=== PATIENT | female | born 1995 | race Caucasian/White ===

== ENCOUNTER → 2018-09-08 12:53 | Outpatient (CLI) | payer OTHER, MEDICAID, SELFPAY ==
[2018-09-08 13:30] LABS: Add Manual Diff / Slide Review NO; Basophils Absolute Auto 0 /uL (0-100); Basophils Percent Auto 0.4 % (0-2); Eosinophils Absolute Auto 200 /uL (0-450); Eosinophils Percent Auto 2.2 % (2-4); Hematocrit 36.3 % (36-46); Hemoglobin 12.8 g/dL (12.0-16.0); Lymphocytes Absolute Auto 1500 /uL (1100-4500); Lymphocytes Percent Auto 17.7 % (25-40); Mean Corpuscular HGB Conc 35.2 % (30-36); Mean Corpuscular Hemoglobin 31.2 PG (26-34); Mean Corpuscular Volume 88.7 fL (80-100); Monocytes Absolute Auto 800 /uL (0-900); Neutrophils Absolute Auto 6000 /uL (1500-7000); Neutrophils Percent Auto 70.7 % (50-75); Platelet Count 255 X10^3/uL (150-400); Red Blood Cell Count 4.09 X10^6/uL (4.0-5.2); Red Cell Distribution Width 12.3 % (11.6-14.8); White Blood Cell Count 8.5 X10^3/uL (4.5-11.0)
[2018-09-08 13:39] LABS: Appearance Urine UA CLEAR; Bilirubin Urine UA NEGATIVE (NEGATIVE); Color Urine UA YELLOW; Glucose Urine UA NEGATIVE (Negative); Ketones Urine UA NEGATIVE (NEGATIVE); Leukocyte Esterase Urine UA NEGATIVE (NEGATIVE); Nitrite Urine UA NEGATIVE (Negative); Occult Blood Urine UA TRACE-INTACT (Negative); Protein Urine UA NEGATIVE (Negative); Specific Gravity Urine UA >=1.030 (1.000-1.035); Urobilinogen Urine UA 0.2 E.U./dL (0.2)
[2018-09-08 15:28] LABS: Hepatitis B Surface Antigen NEGATIVE s/c (NEGATIVE); Rubella Antibody IgG 26.9 IU/mL (>15)
[2018-09-08 15:45] LABS: HIV 1 and 2 Antibody NEGATIVE (NEGATIVE); Hep C Virus Ab w/Reflex Quant NEGATIVE s/c (NEGATIVE)
[2018-09-11 13:09] LABS: RPR Screen Nonreactive (Nonreactive)
== END ==
PROVIDERS: PCP Nurse Practitioner Family; Visit Provider Specialist
DX: Z34.81 Encounter for supervision of other normal pregnancy, first trimester (principal)
CPT/HCPCS: 36415; 80055; 81003; 86703; 86787; 86803; 86850; 86900; 86901; 87086

== ENCOUNTER → 2018-12-08 09:44 | Outpatient (CLI) | payer OTHER, MEDICAID, SELFPAY ==
--- NOTE | 2018-12-08 09:45 | DI.US.S_ITS ---
PROCEDURE: US OB >= 14 WEEKS FETUS INDICATIONS: ANATOMY OUTSIDE/PRIOR DATING DATA: Last menstrual period (LMP): 07/28/18. LMP-based estimated date of delivery (ELIEL): 05/04/19. First dating scan (date and location): This study, 12/08/18. Estimated date of delivery (ELIEL) from first dating scan: 04/10/19. TECHNIQUE: Real-time scanning was performed of the fetus, with image documentation and biometric measurements. Endovaginal scanning: Not needed for this study COMPARISON: None. FINDINGS: General: A single living intrauterine gestation is present. Presentation: Vertex. Placenta: Placental position is right fundal, without previa. Amniotic fluid index: 13.1 cm, normal range is 5-24 cm. heart rate: 133 beats per minute. Maternal cervical canal: 3.6 cm biometrics: Biparietal diameter: 5.4 cm, 20 weeks 3 days Head circumference: 20.2 cm, and 22 weeks 3 days Abdominal circumference: 17.1 cm, 22 weeks 1 day Femur length: 3.9 cm, 20 weeks 4 days Estimated gestational age from initial scan: not applicable. Composite gestational age from present scan: 22 weeks 3 days Estimated weight: 492 g Measurement variability for biometric dating: +/- 7 days from 14 weeks to 15 weeks 6 days gestation, +/- 10 days from 16 weeks to 21 weeks 6 days gestation, +/- 2 weeks from 22 weeks to 27 weeks 6 days gestation, +/- 3 weeks for 28 weeks gestation or later. weight reference: 4500 g or EFW >90/95% is considered macrosomia or large for gestational age. EFW <10% is small for gestational age. EFW 5% or less is considered intra-uterine growth restriction. Anatomic survey: Neuro: Ventricles are non-dilated at less than 10 mm. Cisterna magna is normal at 3-11 mm. Cerebellum is normal in size and morphology. Nuchal skin fold: Normal at less than 6 mm between 14-21 weeks gestational age. Face: Nose and lips, facial profile are normal. Spine: No evidence for spina bifida. Heart: 4-chambered heart is present, with normal ventricular outflow tracts. Diaphragm: Diaphragm is intact. Stomach: Left-sided stomach is present. Kidneys: No hydronephrosis. Normal is less than 5 mm in 2nd trimester, less than 7 mm in 3rd trimester. Cord: 3-vessel cord has orthotopic insertion. Bladder: Normal in size. Extremities: All 4 extremities identified. IMPRESSION: Single living intrauterine gestation with normal anatomy and with delivery date projected to be centered on 04/10/19 from current biometry. The current estimated gestational age is 22 weeks 3 days, no earlier OB ultrasound is available for review. Dictated by: Vikas Harris M.D. on 12/08/2018 at 16:50 Approved by: Vikas Harris M.D. on 12/08/2018 at 16:57
== END ==
PROVIDERS: PCP Nurse Practitioner Family; Visit Provider Specialist
DX: Z34.82 Encounter for supervision of other normal pregnancy, second trimester (principal); Z3A.22 22 weeks gestation of pregnancy
CPT/HCPCS: 76811

== ENCOUNTER 2018-12-14 10:56 | Emergency (ER) | payer OTHER, MEDICAID, SELFPAY ==
[2018-12-14 11:20] VITALS: BP 107/60; PULSE 59; RESP 15; TEMP 36.8; O2SAT 100; BMI 24.7
--- NOTE | 2018-12-14 11:31 | DI.US.S_ITS ---
PROCEDURE: US ABDOMEN LIMITED INDICATIONS: RIGHT GROIN LUMP, PAIN; 6 MONTHS TECHNIQUE: Real-time focused scanning was performed of the inguinal region, with image documentation. COMPARISON: [facility], , OB COMPLETE 14WKS OR MORE, 05/28/2016, 12:12. [facility], , US OB >= 14 WEEKS FETUS, 12/08/2018, 10:09. [facility], , US OB <= 14 WEEKS FETUS, 10/17/2018, 14:20. FINDINGS: Scanning over the inguinal canals in the areas of concern was performed, both before and during Valsalva maneuver. A bowel containing or fat containing mobile inguinal hernia with fat identified. Rather, on color Doppler imaging prominent venous collateral flow is identified within the inguinal canals. The study does not extend cephalad into the area around the gestation, and it is possible that this is a manifestation of pelvic venous congestion of . Compression of the retroperitoneal vessels by the gestation can produce restriction to venous flow and secondary collateral development to a greater degree in some patients than others. No ascites is seen. No tenderness was present. IMPRESSION: A hernia is not seen associated with this gestation. The palpable soft tissue prominence in the area current clinical concern at the right groin appears to represent venous collateral flow likely secondary to pelvic venous congestion of . The study is limited in its [id number] and depending on the clinical status followup by noncontrast pelvic MR scanning optimized for venous visualization could be performed. Dictated by: Vikas Harris M.D. on 12/14/2018 at 13:09 Approved by: Vikas Harris M.D. on 12/14/2018 at 13:16
--- NOTE | 2018-12-14 11:50 | ED.ABDPAIN ---
HPI - Abdominal Pain General Chief Complaint: Abdominal Pain Stated Complaint: Hernia,swollen,turning purple,6 mth preg Time Seen by Provider: 12/14/18 11:25 Source: patient Mode of arrival: ambulatory Limitations: no limitations History of Present Illness HPI narrative: Patient is a 23-year-old female currently 6 months presenting with right labia at color abnormality. Seen evaluated at [facility] where she was diagnosed the. She has had increased pain in the noticed discoloration of her labia which they took a picture of and came to the ER. She denies any bulging. She has no abdominal pain. She has no vaginal bleeding. No nausea or vomiting. Related Data Previous Rx's Medication Instructions Recorded Vitamins (PRENAVITE) 1 tab PO QDAY #90 tab 03/05/16 docusate sodium 250 mg PO QDAY #30 cap 10/18/16 Allergies Allergy/AdvReac Type Severity Reaction Status Date / Time No Known Allergies Allergy Unknown Verified 12/14/18 11:32 [NO KNOWN ALLERGIES] Review of Systems Review of Systems ROS Unobtainable: All systems reviewed & are unremarkable except as noted in HPI and below Constitutional Denies chills, Denies fever(s), Denies lethargy and Denies weakness Cardiovascular Denies dyspnea and Denies dyspnea on exertion Respiratory Denies cough, Denies dyspnea, Denies dyspnea on exertion and Denies wheezing Gastrointestinal Gastrointestinal: Reports as per HPI Genitourinary Reports as per HPI Integumentary/Breasts Denies pruritus, Denies erythema, Denies rash and Denies wounds Neurologic Denies weakness Allergic/Immunologic Denies wheezing [facility] Medical History Hernia of anterior abdominal wall (Acute) Family History (Updated 05/06/16 @ 00:00 by Conversion Provider) Grandmother Diabetes mellitus Hypertension Stroke Social History Smoking Status: Never smoker Family History Grandmother Diabetes mellitus Hypertension Stroke Social History Smoking Status: Never smoker Exam Initial Vital Signs Initial Vital Signs: Vital Signs Temperature 98.3 F 12/14/18 11:20 Pulse Rate 59 L 12/14/18 11:20 Respiratory Rate 15 08/18/19 11:20 Blood Pressure 107/60 08/18/19 11:20 Pulse Oximetry 100 12/14/18 11:20 GENERAL: Well-appearing, well-nourished and in no acute distress. HEENT: Head atraumatic,EOMI, pupils reactive, face symmetric, mpanum PHARYNX: No erythema, no tonsillar exudate, no cervical lymphadenopathy CARDIOVASCULAR: Regular rate and rhythm without murmurs, rubs or gallops. RESPIRATORY: Breath sounds equal bilaterally, no wheezes rales or rhonchi. ABDOMEN: Soft, gravid abdomen no tenderness. Right inguinal area no bulging now and tender the : No significant swelling of the sleepy minor discoloration slightly cyanotic varice and noted EXTREMITIES: Normal range of motion, no clubbing or edema. Neurovascularly intact NEUROLOGICAL: Alert and oriented x4.Normal gait and speech. Cranial nerves II through XII grossly intact. SKIN: Warm, dry, no laceration, no petechiae, no rashes or lesions. Course Orders Ordered: ED Orders 12/14/18 11:31 US abdomen limited Stat Vital Signs - 8 hr 12/14/18 11:20 12/14/18 13:29 Temperature 98.3 F Pulse Rate 59 L 64 Respiratory Rate 15 15 Blood Pressure 107/60 Blood Pressure [Right Arm] 103/62 Pulse Oximetry 100 100 MDM - Abdominal Pain Imaging Data US - abdomen: Radiologist's impression: PROCEDURE: US ABDOMEN LIMITED INDICATIONS: RIGHT GROIN LUMP, PAIN; 6 MONTHS TECHNIQUE: Real-time focused scanning was performed of the inguinal region, with image documentation. COMPARISON: [facility], OB COMPLETE 14WKS OR MORE, 05/28/2016, 12:12. [facility], US OB >= 14 WEEKS FETUS, 12/08/2018, 10:09. [facility], US OB <= 14 WEEKS FETUS, 10/17/2018, 14:20. FINDINGS: Scanning over the inguinal canals in the areas of concern was performed, both before and during Valsalva maneuver. A bowel containing or fat containing mobile inguinal hernia with fat identified. Rather, on color Doppler imaging prominent venous collateral flow is identified within the inguinal canals. The study does not extend cephalad into the area around the gestation, and it is possible that this is a manifestation of pelvic venous congestion of . Compression of the retroperitoneal vessels by the gestation can produce restriction to venous flow and secondary collateral development to a greater degree in some patients than others. No ascites is seen. No tenderness was present. IMPRESSION: A hernia is not seen associated with this gestation. The palpable soft tissue prominence in the area current clinical concern at the right groin appears to represent venous collateral flow likely secondary to pelvic venous congestion of . The study is limited in its [id number] and depending on the clinical status followup by noncontrast pelvic MR scanning optimized for venous visualization could be performed. Dictated by: Vikas Harris M.D. on 12/14/2018 at 13:09 MDM Narrative Medical decision making narrative: Record from [facility] are seen and reviewed. She did have an ultrasound on 11/14/2018 which did show a fat containing hernia in the right inguinal region. However today her labia does show a varice vein which is likely related to . I do not feel a bulge in her right lower quadrant she is not significantly tender in that area. At this time I do not feel like she has acute or incarcerated hernia. Discharge Plan Departure Patient Disposition: Home Clinical Impression: Genital varices during in second trimester Discharge Date/Time: 12/14/18 13:32 Interventions: ED Discharge Assessment Last Done: 12/14/18 13:31 Instructions: DI for Varicocele Activity Restrictions/Additional Instructions: *You have been diagnosed with varicocele of *What to do: Ultrasound and exam today did not reveal hernia. *Continue to take medications as directed *Follow up with your primary care provider in 2-3 days *Return to ER if you should have bleeding or any new, worsening or concerning symptoms Prescriptions: No Action Vitamins (PRENAVITE) 1 tab PO QDAY Qty: 90 RF: 3 docusate sodium 250 MG capsule 250 mg PO QDAY Qty: 30 RF: 0 Referrals: Nadya Sharma ARNP [Primary Care Provider] -
[2018-12-14 13:29] VITALS: BP 103/62; PULSE 64; RESP 15; O2SAT 100
== END 2018-12-14 13:32 | disposition home or self-care (01) ==
PROVIDERS: Emergency Provider Emergency Medicine; Family Provider Specialist; PCP Nurse Practitioner Family
DX: O22.12 Genital varices in pregnancy, second trimester (principal)
CPT/HCPCS: 76705; 99282; 99283

== ENCOUNTER → 2019-03-25 10:22 | Outpatient (CLI) | payer OTHER, MEDICAID, SELFPAY ==
[2019-03-26 14:21] LABS: Strep Grp B PCR NEG for Grp B Strep
== END ==
PROVIDERS: Family Provider Specialist; PCP Nurse Practitioner Family; Visit Provider Specialist
DX: Z34.83 Encounter for supervision of other normal pregnancy, third trimester (principal); Z36.85 Encounter for antenatal screening for Streptococcus B; Z3A.36 36 weeks gestation of pregnancy
CPT/HCPCS: 87653

== ENCOUNTER 2019-04-08 23:41 | Inpatient (IN) | payer OTHER, MEDICAID, SELFPAY ==
[2019-04-09 04:08] VITALS: BP 120/68
[2019-04-09 05:37] LABS: Hemoglobin 13.2 g/dL (12.0-16.0); Lymphocytes Percent Auto 12.3 % (25-40); Mean Corpuscular HGB Conc 34.8 % (30-36); Mean Corpuscular Hemoglobin 32.1 PG (26-34); Mean Corpuscular Volume 92.2 fL (80-100); Monocytes Percent Auto 6.7 % (3-14); Neutrophils Percent Auto 79.6 % (50-75); Red Blood Cell Count 4.12 X10^6/uL (4.0-5.2); Red Cell Distribution Width 12.5 % (11.6-14.8); White Blood Cell Count 16.3 X10^3/uL (4.5-11.0)
[2019-04-09 05:38] LABS: Add Manual Diff / Slide Review SLIDE REVIEW; Basophils Absolute Auto 0 /uL (0-100); Basophils Percent Auto 0.4 % (0-2); Eosinophils Absolute Auto 0 /uL (0-450); Lymphocytes Absolute Auto 2 /uL (1100-4500); Monocytes Absolute Auto 1 /uL (0-900); Neutrophils Absolute Auto 13 /uL (1500-7000)
[2019-04-09 06:35] LABS: Platelet Count 174 X10^3/uL (150-400); Platelet Estimate Adequate on smear
[2019-04-09 06:36] LABS: Polychromasia 1+
--- NOTE | 2019-04-09 08:00 | PM.OBHP.1 ---
OB HPI Date/Time Date of admission: 04/09/19 Date Patient Seen: 04/09/19 Time Patient Seen: 08:01 History of Present Condition Chief complaint: : 2 Para: 1 Estimated Date of Delivery: 04/10/19 Estimated Gestational Age (weeks): 39 Narrative: Nanda Somers is a 24 year old female admitted in active labor History of Present care: good care, initiated at week # (11), number of visits (9) and pounds weight gain (22) Dating criteria: based on 2nd trimester US only Ultrasounds: normal mid trimester US Obstetrical complications: none Medical complications: none Preadmission Labs Blood type: B (-) negative -: Antibody screen: negative, GBS status: negative, HBsAG: negative, HIV: negative and RPR/VDLR: negative -: Chlamydia screen: not detected and Gonorrhea screen: not detected -: Rubella: immune and Varicella: immune HCAB: negative PAP: Normal Quad screen: Abnormal (Initially increased risk of open neural tube defect but normal after recalculated an EDC) 1 hr GTT: 132 Prior (ies) History: 10/16/2016 spontaneous vaginal delivery female 40 week 7 lb 11oz Evaluation Evaluation Baseline heart rate: 135 Variability: Moderate (11-25) monitor accelerations: Present monitor decelerations: Absent Contraction Frequency (minutes): 3 Uterine Contraction Intensity: Strong/Firm Category of Tracing: I Cervical dilation (cm): 7 Cervical effacement (%): 90 station: -1 Laboratory results: Laboratory Tests 04/09/19 04/09/19 04:30 04:30 WBC 16.3 H RBC 4.12 Hgb 13.2 Hct 38.0 MCV 92.2 MCH 32.1 MCHC 34.8 RDW 12.5 Plt Count 174 Neut % (Auto) 79.6 H Lymph % (Auto) 12.3 L Churchill % (Auto) 6.7 Eos % (Auto) 1.0 L Baso % (Auto) 0.4 Neut # (Auto) 13 L Lymph # (Auto) 2 L Churchill # (Auto) 1 Eos # (Auto) 0 Baso # (Auto) 0 Platelet Estimate Adequate on smear RBC Morphology See below Polychromasia 1+ H Blood Type B Negative PFSH Social History Smoking Status: Never smoker Meds Home Medications and Allergies Home Medications Medication Instructions Recorded Confirmed Type Vitamins (PRENAVITE) 1 tab PO QDAY #90 tab 03/05/16 04/09/19 Rx docusate sodium 250 mg PO QDAY #30 cap 10/18/16 04/09/19 Rx Double Electric Breast Pump and #1 each 12/31/18 04/09/19 Rx supplies Allergies Allergy/AdvReac Type Severity Reaction Status Date / Time No Known Allergies Allergy Unknown Verified 12/14/18 11:32 [NO KNOWN ALLERGIES] Review of Systems Review of Systems Narrative: Patient with onset of contractions but no leakage of fluid. Good movement. No signs or symptoms of preeclampsia ROS Unobtainable: All systems reviewed & are unremarkable except as noted in HPI and below Exam Vital Signs (past 8 hours): - 04/09/19 04:08 Blood Pressure 120/68 Narrative Exam Narrative: HEENT exam within normal limits. Lungs are clear to auscultation percussion. Heart is regular rate and rhythm no S3-S4 or murmurs. Fetus is vertex. Extremities without edema and nontender Objective Labs Result Diagrams: 04/09/19 04:30 Labs: Laboratory Results - last 24 hr 04/09/19 04/09/19 04:30 04:30 WBC 16.3 H RBC 4.12 Hgb 13.2 Hct 38.0 MCV 92.2 MCH 32.1 MCHC 34.8 RDW 12.5 Plt Count 174 Neut % (Auto) 79.6 H Lymph % (Auto) 12.3 L Churchill % (Auto) 6.7 Eos % (Auto) 1.0 L Baso % (Auto) 0.4 Neut # (Auto) 13 L Lymph # (Auto) 2 L Churchill # (Auto) 1 Eos # (Auto) 0 Baso # (Auto) 0 Platelet Estimate Adequate on smear RBC Morphology See below Polychromasia 1+ H Blood Type B Negative Assessment and Plan Assessment and Plan Assessment and Plan narrative: 39 week gestation in active labor. Anticipate vaginal delivery.
[2019-04-09] MEDS: LACTATED RINGERS 1,000 ML 100 ML IV (09:01)
--- NOTE | 2019-04-09 11:21 | P.PCNOB_ITS ---
Labor & Delivery Delivery date: 04/09/19 Intrapartal events: None Induction method: none Delivery monitor: external FHT and external uterine Route of delivery: L&D Laceration Description: None Estimated blood loss (mL): 150 Anesthesia type: None Narrative: Patient arrived on Labor and delivery in active labor. heart tones category 1 throughout labor. Spontaneous rupture membranes with pushing clear fluid. Spontaneous delivery over an intact perineum. There was a tight nuchal cord. Viable male infant was placed on maternal abdomen. After cord stopped pulsating the cord was clamped, cut, and cord bloods obtained. The placenta delivered spontaneously, intact, with 3 vessels. There were no cervical, vaginal, or perineal tears other than some periurethral superficial tears that did not require suturing. Estimated blood loss 150 cc. Both infant mother doing well. Baby weighed 7 lb 12 oz Baby 1: Infant gender: Male Presentation: vertex position: Right Occiput Anterior Placenta delivery description: Spontaneous cord vessel description: Nuchal Cord score (1 min): 8 score (5 min): 9 Plan for aftercare: Routine post vaginal delivery
[2019-04-09] MEDS: METHYLERGONOVINE 0.2 MG TABLET PO (12:32)
[2019-04-09] MEDS: IBUPROFEN 600 MG TABLET PO ×2 (12:47→20:09)
[2019-04-09] MEDS: RHO(D) IMMUNE GLOBULIN 1,500 UNIT SYRINGE 1500 UNIT IM (16:50)
[2019-04-10] MEDS: IBUPROFEN 600 MG TABLET PO ×2 (02:26→09:28)
[2019-04-10 06:39] LABS: Hematocrit 30.7 % (36-46); Hemoglobin 10.5 g/dL (12.0-16.0)
[2019-04-10] MEDS: DOCUSATE 100 MG CAPSULE PO (09:03)
--- NOTE | 2019-04-10 12:14 | P.DS_ITS ---
Discharge Providers Provider Date of admission: 04/08/19 23:41 Discharge Date: 04/10/19 Primary care physician: ALLAN Gruber Consults: 04/09/19 04:07 Consult to Anesthesiology Urgent Comment: Consulting Provider: Anesthesiologist Reason for consultation: Epidural Has provider been notified: No 04/10/19 11:18 Consult to Optomechanical Engineer Routine Comment: Discharge provider: Tori Armstrong MD Summary Hospital Course Date Patient Seen: 04/10/19 Time Patient Seen: 12:15 Procedures: Vaginal delivery Hospital Course: Patient arrived on Labor and delivery in active labor. She had a spontaneous vaginal delivery. She did well . Peripartum Data Delivery Method: Natural Vaginal Laceration description: None complications: none 1: Gender: Male Disposition of : home Discharge Diagnosis (1) Vaginal delivery: Status: Acute (2) Acute blood loss anemia: Status: Acute Status at Discharge Cognitive/behavioral status at discharge: oriented Overall status at discharge: patient is progressing back to baseline Time Spent with Patient Time attestation: Total time spent providing and/or coordinating discharge services: Time spent: Less than 30 minutes Objective Labs Result Diagrams: 04/10/19 06:15 Labs: Laboratory Results - last 24 hr 04/10/19 04/10/19 06:15 06:15 Hgb 10.5 L Hct 30.7 L Maternal Bleed Negative Exam Vital Signs (past 8 hours): Blood pressure 100/58, pulse 62, temperature 98.3? Narrative Exam Narrative: Abdomen is soft, nontender. Uterus is firm, at U, nontender. Mild lochia. Extremities without edema and nontender. Patient is Rh negative and baby Rh positive so she received RhoGAM prior to discharge. She is rubella immune and received the Tdap in the 3rd trimester. Discharge Plan Discharge Plan Patient Disposition: Home Discharge orders & Medications Prescriptions: New ibuprofen 600 mg Tablet 600 mg PO Q6HR PRN (Reason: Pain, Mild (1-3)) Qty: 20 RF: 0 ferrous gluconate 324 mg (38 mg iron) tablet 324 mg PO DAILY Qty: 30 RF: 0 Continued Vitamins (PRENAVITE) 1 tab PO QDAY Qty: 90 RF: 3 docusate sodium 250 MG capsule 250 mg PO QDAY Qty: 30 RF: 0 (DME) Double Electric Breast Pump and supplies Qty: 1 RF: 0 Follow up/Referrals: Nadya Sharma ARNP [Primary Care Provider] - Tori Armstrong MD [Family Provider] - 1 Month (Follow up with Dr. Armstrong on May 13 at 11:00 with a 10:40 check in. Call for questions/concerns or to reschedule. ) Diet/Activity/Treatments Diet: Regular Activity: Nothing in vagina for 4 weeks Skin/Wound/Dressing Care Report to your healthcare provider any signs of infection, such as:: chills, fever and increased pain Visit Report/Discharge Packet Stand Alone Forms: Discharge: Care Discharge Data Primary Care Provider: Nadya Sharma
[2019-04-10 12:25] VITALS: BP 116/71; PULSE 57; RESP 19; TEMP 36.9
== END 2019-04-10 15:00 | disposition home or self-care (01) | DRG 560 ==
PROVIDERS: Admitting Provider Specialist; Family Provider Specialist; PCP Nurse Practitioner Family; Visit Provider Specialist
DX: O69.1XX0 Labor and delivery complicated by cord around neck, with compression, not applicable or unspecified (principal); D62 Acute posthemorrhagic anemia; Z3A.39 39 weeks gestation of pregnancy; Z37.0 Single live birth
CPT/HCPCS: 36415; 59050; 59409; 85014; 85018; 85025; 85461; 86850; 86900; 86901; G0379; J2790